=== PATIENT | male | born 1950 | race African-American/Black ===

== ENCOUNTER 2016-08-26 20:56 | Inpatient (IN) | payer OTHER ==
[~2016-08-26] VITALS: Ht 182.9 cm; Wt 103.2 kg
[~2016-08-26 20:56] MED LIST: HYDR25TA4 PO; NIFE20CA PO
[2016-08-26] MEDS ORDERED: ASPirin 81 mg TAB PO ONE (21:15)
[2016-08-26 21:45] LABS: Basophils # (auto) 0 uL; Basophils % (auto) 0.2 % (0.0-2.0); Eosinophils # (auto) 0 uL; Eosinophils % (auto) 0.6 % (0.0-7.0); Hemoglobin 13.3 g/dL (13.5-17.5); Lymphocytes # (auto) 1.4 uL; Lymphocytes % (auto) 18.3 % (10.0-50.0); Mean Corpuscular Hemoglobin 27.1 pg (28.0-32.0); Mean Corpuscular Hgb Conc. 32.5 g/dL (32.0-36.0); Mean Corpuscular Volume 83.3 fL (80.0-100.0); Mean Platelet Volume 8.8 fL (7.4-10.4); Monocytes # (auto) 0.8 uL; Monocytes % (auto) 11.2 % (0.0-12.0); Neutrophils # (auto) 5.3 uL; Neutrophils % (auto) 69.7 % (37.0-80.0); Platelet Count (auto) 243 10^3/uL (140-450); Red Cell Distribution Width 17.4 % (11.6-16.0); White Blood Cell 7.5 10^3/uL (4.4-10.8)
[2016-08-26 22:09] LABS: Albumin 3.1 g/dL (3.4-5.0); BUN/Creatinine Ratio 21.7; Bilirubin, Total 0.6 mg/dL (0.2-1.0); Magnesium 2.4 mg/dL (1.6-2.6); Potassium 4.5 mmol/L (3.5-5.1); Total Protein 6.2 g/dL (6.4-8.2)
[2016-08-26 22:13] LABS: B-Type Natriuretic Peptide 604.79 pg/mL (0-100); Temperature: 23.1 C (20.0-25.0)
[2016-08-27] MEDS ORDERED: LABETALOL HCL 200 MG TAB PO ONE ×2 (01:30→05:30)
[2016-08-27] MEDS ORDERED: ACETAMINOPHEN 325 MG TAB PO PRN (05:30)
[2016-08-27] MEDS ORDERED: ONDANSETRON HCL 4 MG/2 ML VIAL IV PRN (05:30)
[2016-08-27] MEDS ORDERED: FUROSEMIDE 20 MG/2 ML VIAL IV ONE (05:30)
[2016-08-27] MEDS ORDERED: ENOXAPARIN SOD 100 MG/1 ML SYRINGE SC ONE (05:30)
[2016-08-27] MEDS ORDERED: MORPHINE SULF INJ 2 MG/ML SYRINGE 1ML IV PRN ×2 (05:30)
[2016-08-27] MEDS ORDERED: HYDROcodone-ACET 5/325MG TAB PO PRN (05:30)
[2016-08-27] MEDS ORDERED: NITROGLYCERIN 0.4 MG SL TAB SL PRN (05:30)
[2016-08-27] MEDS ORDERED: ALBUTEROL SULF 2.5 MG/0.5ML(0.5%) NEB SOLN NEB PRN (05:30)
[2016-08-27 06:21] VITALS: BP 162/117
[2016-08-27 09:56] VITALS: BP 131/84
[2016-08-27] MEDS ORDERED: FUROSEMIDE 20 MG TAB PO SCH (10:00)
[2016-08-27] MEDS: GEMFIBROZIL 600 MG TAB PO SCH ×2 (10:00→23:08)
[2016-08-27] MEDS ORDERED: ASPirin 81 mg TAB PO SCH (10:00)
[2016-08-27] MEDS ORDERED: HCTZ 25 MG TAB PO SCH (10:00)
[2016-08-27] MEDS ORDERED: ENOXAPARIN SOD 40 MG/0.4 ML SYRINGE SC SCH (10:00)
[2016-08-27] MEDS: FAMOTIDINE 20 MG TAB PO SCH ×2 (11:08→23:09)
[2016-08-27] MEDS: LISINOPRIL 20 MG TAB PO SCH (11:09)
[2016-08-27] MEDS: METOPROLOL TARTRATE 50 MG TAB PO SCH ×2 (11:10→23:09)
[2016-08-27 13:11] VITALS: BP 122/83
[2016-08-27 15:20] LABS: INR 1.12 (0.9-1.15); Prothrombin Time 12.1 sec (9.37-12.3)
[2016-08-27] MEDS ORDERED: SODIUM BICARBONATE 50ML VIAL 150 ML in D5W 5% 1,000 ML IV ONE (16:15)
[2016-08-27 16:59] VITALS: BP 108/80
[2016-08-27] MEDS: ENOXAPARIN SOD 100 MG/1 ML SYRINGE SC SCH (23:09)
[2016-08-27 23:13] VITALS: BP 140/90
[2016-08-28 05:21] LABS: Basophils # (auto) 0 uL; Basophils % (auto) 0.4 % (0.0-2.0); Eosinophils # (auto) 0.1 uL; Eosinophils % (auto) 1.7 % (0.0-7.0); Hematocrit 38.9 % (41.0-53.0); Hemoglobin 12.5 g/dL (13.5-17.5); Lymphocytes # (auto) 1.4 uL; Lymphocytes % (auto) 25.9 % (10.0-50.0); Mean Corpuscular Hemoglobin 27.2 pg (28.0-32.0); Monocytes # (auto) 0.6 uL; Neutrophils # (auto) 3.3 uL; Platelet Count (auto) 242 10^3/uL (140-450); White Blood Cell 5.3 10^3/uL (4.4-10.8)
[2016-08-28 05:49] VITALS: BP 138/98
[2016-08-28 05:53] LABS: Albumin 2.5 g/dL (3.4-5.0); BUN/Creatinine Ratio 23.1; Bilirubin, Total 0.4 mg/dL (0.2-1.0); Calcium 7.8 mg/dL (8.5-10.1); Potassium 3.9 mmol/L (3.5-5.1); Total Protein 5.1 g/dL (6.4-8.2)
[2016-08-28 09:09] VITALS: BP 134/90
[2016-08-28] MEDS: FAMOTIDINE 20 MG TAB PO SCH ×2 (09:52→22:07)
[2016-08-28] MEDS: GEMFIBROZIL 600 MG TAB PO SCH ×2 (09:52→22:07)
[2016-08-28] MEDS: FUROSEMIDE 40 MG/4 ML VIAL IV SCH (09:52)
[2016-08-28] MEDS: POTASSIUM CHL 20 Meq TABLET PO SCH (09:53)
[2016-08-28] MEDS: LISINOPRIL 20 MG TAB PO SCH (09:53)
[2016-08-28] MEDS: ASPirin 81 mg TAB PO SCH (09:54)
[2016-08-28] MEDS: METOPROLOL TARTRATE 50 MG TAB PO SCH ×2 (09:54→22:06)
[2016-08-28] MEDS: ENOXAPARIN SOD 100 MG/1 ML SYRINGE SC SCH ×2 (09:56→22:06)
[2016-08-28] MEDS ORDERED: ASPI81TA27 PO (12:20)
[2016-08-28] MEDS ORDERED: METO-158 PO (12:20)
[2016-08-28] MEDS ORDERED: LISI40TA PO (12:20)
[2016-08-28 13:00] VITALS: BP 137/101
[2016-08-28] MEDS ORDERED: cloNIDine HCL 0.1 MG TAB PO PRN (15:45)
[2016-08-28 16:43] VITALS: BP 145/79
[2016-08-28 22:45] VITALS: BP 129/85
[2016-08-29 05:04] VITALS: BP 140/105
[2016-08-29 08:00] VITALS: BP 140/105
[2016-08-29 08:49] VITALS: BP 147/119
[2016-08-29] MEDS: ENOXAPARIN SOD 100 MG/1 ML SYRINGE SC SCH ×2 (10:00→22:00)
[2016-08-29] MEDS: ASPirin 81 mg TAB PO SCH (10:00)
[2016-08-29] MEDS: FUROSEMIDE 40 MG/4 ML VIAL IV SCH (10:06)
[2016-08-29] MEDS: METOPROLOL TARTRATE 50 MG TAB PO SCH ×2 (10:07→22:27)
[2016-08-29] MEDS: LISINOPRIL 20 MG TAB PO SCH (10:07)
[2016-08-29] MEDS: FAMOTIDINE 20 MG TAB PO SCH ×2 (10:07→22:25)
[2016-08-29] MEDS: GEMFIBROZIL 600 MG TAB PO SCH ×2 (10:08→22:25)
[2016-08-29] MEDS: POTASSIUM CHL 20 Meq TABLET PO SCH (10:08)
[2016-08-29 13:00] VITALS: BP 133/100
[2016-08-29 16:52] VITALS: BP 124/84
[2016-08-29 22:00] VITALS: BP 146/99
[2016-08-30] VITALS (7 sets, daily range): BP systolic 141–152; BP diastolic 84–105
[2016-08-30 06:08] LABS: Albumin 2.7 g/dL (3.4-5.0); Calcium 8.2 mg/dL (8.5-10.1)
[2016-08-30 06:10] LABS: BUN/Creatinine Ratio 15.6
[2016-08-30 06:14] LABS: Bilirubin, Total 0.5 mg/dL (0.2-1.0); Total Protein 5.7 g/dL (6.4-8.2)
[2016-08-30] MEDS: GEMFIBROZIL 600 MG TAB PO SCH (09:34)
[2016-08-30] MEDS: METOPROLOL TARTRATE 50 MG TAB PO SCH (09:34)
[2016-08-30] MEDS: FAMOTIDINE 20 MG TAB PO SCH (09:34)
[2016-08-30] MEDS: FUROSEMIDE 40 MG/4 ML VIAL IV SCH (09:35)
[2016-08-30] MEDS: LISINOPRIL 20 MG TAB PO SCH (09:35)
[2016-08-30] MEDS ORDERED: IOHEXOL 350 MG/ML 100ML IJ ONE ×2 (09:41→09:47)
[2016-08-30] MEDS ORDERED: NITROGLYCERIN 0.4 MG SL TAB SL ONE (09:46)
[2016-08-30] MEDS ORDERED: METOPROLOL TARTRATE 1MG/1ML-5ML VIAL IV ONE (09:46)
[2016-08-30 09:48] LABS: INR 1.03 (0.9-1.15); Partial Thromboplastin Time 25.7 sec (22.64-33.71); Prothrombin Time 11.1 sec (9.37-12.3)
[2016-08-30] MEDS: POTASSIUM CHL 20 Meq TABLET PO SCH (10:00)
[2016-08-30] MEDS: ENOXAPARIN SOD 100 MG/1 ML SYRINGE SC SCH (10:00)
[2016-08-30] MEDS: ASPirin 81 mg TAB PO SCH (10:00)
[2016-08-30] MEDS ORDERED: NIFEdipine ER 30 MG TAB PO ONE (12:15)
[2016-08-30] MEDS ORDERED: MET50T PO (14:41)
[2016-08-30] MEDS ORDERED: APIXABAN 5 MG TAB PO SCH ×2 (14:50→15:00)
[2016-08-30] MEDS ORDERED: WARFARIN SODIUM 5 MG TAB PO ONE (17:00)
[2016-08-30] MEDS ORDERED: METOPROLOL TARTRATE 50 MG TAB PO SCH (22:00)
[2016-08-31] MEDS ORDERED: NIFEdipine ER 30 MG TAB PO SCH (10:00)
== END 2016-08-30 16:34 | disposition home or self-care (01) | DRG 194 ==
LOC: ER 20:56 → TELE 20:57 → TELE-WESTW 08-27 07:26 → TELE-E-ADS 08-27 07:32 → TELE-WESTW 08-27 09:02
PROVIDERS: ADMIT Nurse Practitioner; ATTEND Internal Medicine
DX: I11.0 Hypertensive heart disease with heart failure (principal); E44.0 Moderate protein-calorie malnutrition; D68.69 Other thrombophilia; I51.3 Intracardiac thrombosis, not elsewhere classified; I48.91 Unspecified atrial fibrillation; E78.5 Hyperlipidemia, unspecified; I25.10 Atherosclerotic heart disease of native coronary artery without angina pectoris; R74.8 Abnormal levels of other serum enzymes; Z86.73 Personal history of transient ischemic attack (TIA), and cerebral infarction without residual deficits; I50.33 Acute on chronic diastolic (congestive) heart failure; Z82.49 Family history of ischemic heart disease and other diseases of the circulatory system; Z79.01 Long term (current) use of anticoagulants; Z68.30 Body mass index [BMI] 30.0-30.9, adult
CPT/HCPCS: 36415; 71010; 71020; 75574; 80053; 83735; 83880; 84443; 84484; 85025; 85379; 85610; 85730; 93005; 93306; 96372; 96374

== ENCOUNTER 2018-08-15 09:20 | Inpatient (IN) | payer OTHER ==
[~2018-08-15] VITALS: Ht 185.4 cm; Wt 113.4 kg
[~2018-08-15 09:20] MED LIST changes: +AML5T PO; +FURO40TA4 PO; -HYDR25TA4 PO; +MET50T PO; -NIFE20CA PO; +VALS1TAB57 PO
[2018-08-15 10:06] LABS: Basophils # (auto) 0.1 uL; Basophils % (auto) 0.9 % (0.0-2.0); Eosinophils # (auto) 0.1 uL; Eosinophils % (auto) 0.8 % (0.0-7.0); Hematocrit 44.7 % (41.0-53.0); Hemoglobin 14.5 g/dL (13.5-17.5); Lymphocytes % (auto) 13.5 % (10.0-50.0); Mean Corpuscular Hemoglobin 27.6 pg (28.0-32.0); Mean Corpuscular Hgb Conc. 32.5 g/dL (32.0-36.0); Mean Corpuscular Volume 84.8 fL (80.0-100.0); Monocytes # (auto) 0.6 uL; Monocytes % (auto) 9.1 % (0.0-12.0); Neutrophils # (auto) 5.3 uL; Neutrophils % (auto) 75.7 % (37.0-80.0); Platelet Count (auto) 203 10^3/uL (140-450); Red Blood Cells 5.27 10^6/uL (4.5-5.90); Red Cell Distribution Width 16.6 % (11.8-14.3); White Blood Cell 7.1 10^3/uL (4.4-10.8)
[2018-08-15 10:18] LABS: Albumin 3.1 g/dL (3.4-5.0); BUN/Creatinine Ratio 18.6; Calcium 8.6 mg/dL (8.5-10.1); Magnesium 2.1 mg/dL (1.6-2.6); Potassium 3.5 mmol/L (3.5-5.1)
[2018-08-15 10:23] LABS: Bilirubin, Total 1.4 mg/dL (0.2-1.0); Total Protein 7.2 g/dL (6.4-8.2)
[2018-08-15] MEDS ORDERED: FUROSEMIDE 40 MG/4 ML VIAL IV ONE (11:00)
[2018-08-15] MEDS ORDERED: cloNIDine HCL 0.1 MG TAB PO ONE (17:00)
[2018-08-15] MEDS ORDERED: ALBUTEROL SULF 2.5 MG/0.5ML(0.5%) NEB SOLN NEB SCH (17:00)
[2018-08-15] MEDS ORDERED: NITROGLYCERIN 0.4 MG SL TAB SL PRN (18:30)
[2018-08-15] MEDS ORDERED: MORPHINE SULF INJ 2 MG/ML SYRINGE 1ML IV PRN (18:30)
[2018-08-15] MEDS ORDERED: hydrALAZINE HCL 20 MG/ML VL IV PRN (18:45)
[2018-08-15] MEDS ORDERED: POTASSIUM CHL 20 Meq TABLET PO ONE (20:00)
[2018-08-15] MEDS: FUROSEMIDE 20 MG/2 ML VIAL IV SCH (20:32)
[2018-08-15] MEDS: METOPROLOL TARTRATE 50 MG TAB PO SCH (21:24)
[2018-08-15] MEDS: ENOXAPARIN SOD 120 MG/0.8 ML SYRINGE SC SCH (21:25)
[2018-08-15] MEDS ORDERED: ATORVASTATIN 20 MG TAB PO SCH (22:00)
[2018-08-15] MEDS ORDERED: CARVEDILOL 3.125 MG TAB PO SCH (22:00)
[2018-08-15 22:16] VITALS: BP 169/96
[2018-08-16] MEDS: ALBUTEROL SULF 2.5 MG/0.5ML(0.5%) NEB SOLN NEB SCH ×5 (00:45→14:50)
--- NOTE | 2018-08-16 05:55 | NUR ---
RT NOTE: PT REFUSED NEED FOR TX AT THIS TIME. NO SIGNS OF RESPIRATORY DISTRESS. LUNG SOUNDS CLEAR T/O. ON RA SPO2 99 HR 85 RR 15. PT AWARE THAT I WILL RETURN FOR NEXT SCHEDULED TX. RN BEDSIDE. WILL CONTINUE TO MONITOR.
[2018-08-16] MEDS: FUROSEMIDE 20 MG/2 ML VIAL IV SCH (06:03)
[2018-08-16 06:49] LABS: Basophils # (auto) 0 uL; Basophils % (auto) 0.5 % (0.0-2.0); Eosinophils # (auto) 0.1 uL; Eosinophils % (auto) 1.5 % (0.0-7.0); Hematocrit 41.3 % (41.0-53.0); Hemoglobin 13.4 g/dL (13.5-17.5); Lymphocytes # (auto) 1.1 uL; Lymphocytes % (auto) 17.4 % (10.0-50.0); Mean Corpuscular Hemoglobin 27.5 pg (28.0-32.0); Mean Corpuscular Hgb Conc. 32.6 g/dL (32.0-36.0); Mean Corpuscular Volume 84.5 fL (80.0-100.0); Monocytes # (auto) 0.7 uL; Monocytes % (auto) 11.6 % (0.0-12.0); Neutrophils # (auto) 4.3 uL; Nucleated Red Blood Cells % 0.1 %; Platelet Count (auto) 182 10^3/uL (140-450); Red Blood Cells 4.88 10^6/uL (4.5-5.90); Red Cell Distribution Width 16.6 % (11.8-14.3); White Blood Cell 6.3 10^3/uL (4.4-10.8)
[2018-08-16 07:23] LABS: BUN/Creatinine Ratio 19.4; Calcium 7.9 mg/dL (8.5-10.1); Potassium 3.1 mmol/L (3.5-5.1)
[2018-08-16] MEDS: ENOXAPARIN SOD 120 MG/0.8 ML SYRINGE SC SCH (08:56)
[2018-08-16] MEDS: METOPROLOL TARTRATE 50 MG TAB PO SCH (08:57)
[2018-08-16] MEDS ORDERED: POTASSIUM CHL 20 Meq TABLET PO SCH (10:00)
[2018-08-16] MEDS ORDERED: ASPirin 325 MG TAB PO SCH (10:00)
[2018-08-16] MEDS ORDERED: ENOXAPARIN SOD 40 MG/0.4 ML SYRINGE SC SCH (10:00)
[2018-08-16 10:15] LABS: Cholesterol 203 mg/dL (< 200); Triglycerides 75 mg/dL (< 150)
[2018-08-16 10:17] LABS: HDL Cholesterol 52 mg/dL (40-59); LDL Cholesterol 144 mg/dL (< 100)
[2018-08-16] MEDS ORDERED: POTASSIUM CHL 20 Meq TABLET PO ONE (11:15)
[2018-08-16] MEDS ORDERED: ATOR20TA50 PO (13:25)
[2018-08-16] MEDS ORDERED: HYDR-4296 PO (13:25)
[2018-08-16] MEDS ORDERED: POTA20TA53 PO (13:25)
[2018-08-16] MEDS ORDERED: APIX5TAB OR (13:25)
[2018-08-16] MEDS ORDERED: hydrALAZINE HCL 20 MG/ML VL IV PRN (13:30)
[2018-08-16 14:21] VITALS: BP 145/94
== END 2018-08-16 15:54 | disposition home health service (06) | DRG 194 ==
LOC: ER 09:20 → TELE 18:24
PROVIDERS: ADMIT Hospitalist; ATTEND Hospitalist
DX: I13.0 Hypertensive heart and chronic kidney disease with heart failure and stage 1 through stage 4 chronic kidney disease, or unspecified chronic kidney disease (principal); I24.8 Other forms of acute ischemic heart disease; I48.1 Persistent atrial fibrillation; I48.0 Paroxysmal atrial fibrillation; N18.9 Chronic kidney disease, unspecified; Z79.01 Long term (current) use of anticoagulants; Z86.73 Personal history of transient ischemic attack (TIA), and cerebral infarction without residual deficits; Z79.899 Other long term (current) drug therapy; I50.31 Acute diastolic (congestive) heart failure; I25.10 Atherosclerotic heart disease of native coronary artery without angina pectoris
CPT/HCPCS: 36415; 71046; 80048; 80053; 80061; 83036; 83735; 83880; 84484; 85025; 93005; 93306; 94640; 94761; 96374; G0378

== ENCOUNTER 2018-09-07 17:23 | Emergency (ER) | payer OTHER ==
[~2018-09-07] VITALS: Ht 182.9 cm; Wt 113.4 kg
[~2018-09-07 17:23] MED LIST changes: -AML5T PO; +APIX5TAB OR; +ATOR20TA50 PO; +HYDR-4296 PO; +POTA20TA53 PO
[2018-09-07 18:10] LABS: Basophils # (auto) 0 uL; Basophils % (auto) 0.6 % (0.0-2.0); Eosinophils # (auto) 0.1 uL; Hemoglobin 13.6 g/dL (13.5-17.5); Lymphocytes # (auto) 1.1 uL; Lymphocytes % (auto) 18.3 % (10.0-50.0); Mean Corpuscular Hemoglobin 27.6 pg (28.0-32.0); Mean Corpuscular Hgb Conc. 32.4 g/dL (32.0-36.0); Mean Corpuscular Volume 85.4 fL (80.0-100.0); Monocytes # (auto) 0.6 uL; Monocytes % (auto) 9.4 % (0.0-12.0); Neutrophils # (auto) 4.4 uL; Neutrophils % (auto) 70.7 % (37.0-80.0); Nucleated Red Blood Cells % 0.2 %; Platelet Count (auto) 201 10^3/uL (140-450); Red Blood Cells 4.92 10^6/uL (4.5-5.90); White Blood Cell 6.3 10^3/uL (4.4-10.8)
[2018-09-07 18:33] LABS: Urine Bacteria NONE SEEN /hpf (None Seen); Urine Blood Negative /uL (Negative); Urine Specific Gravity 1.016 (1.001-1.035); Urine WBC 1 /hpf (0 - 3)
[2018-09-07 18:41] LABS: Albumin 3.3 g/dL (3.4-5.0); Calcium 8.4 mg/dL (8.5-10.1); Potassium 4.2 mmol/L (3.5-5.1)
[2018-09-07 18:46] LABS: BUN/Creatinine Ratio 16.7; Total Protein 6.8 g/dL (6.4-8.2)
[2018-09-07] MEDS ORDERED: ASPirin 81 mg TAB PO ONE (21:30)
[2018-09-07] MEDS ORDERED: cloNIDine HCL 0.1 MG TAB PO ONE (21:45)
[2018-09-07] MEDS ORDERED: cloNIDine 0.2 mg/24hr 7DAY PATCH TD ONE (21:45)
[2018-09-07] MEDS ORDERED: FUROSEMIDE 40 MG/4 ML VIAL IV ONE (22:30)
[2018-09-08] MEDS ORDERED: FUROSEMIDE 20 MG/2 ML VIAL IV ONE (00:45)
[2018-09-08] MEDS ORDERED: FUROSEMIDE 40 MG/4 ML VIAL IV ONE (05:15)
[2018-09-08 06:21] VITALS: BP 153/110
[2018-09-08] MEDS ORDERED: METOPROLOL TARTRATE 50 MG TAB PO ONE (06:30)
== END 2018-09-08 07:10 | disposition home or self-care (01) ==
LOC: ER 17:27
DX: R06.09 Other forms of dyspnea (principal); I13.0 Hypertensive heart and chronic kidney disease with heart failure and stage 1 through stage 4 chronic kidney disease, or unspecified chronic kidney disease; N18.3 Chronic kidney disease, stage 3 (moderate); E78.5 Hyperlipidemia, unspecified; I48.0 Paroxysmal atrial fibrillation; R79.89 Other specified abnormal findings of blood chemistry; Z79.899 Other long term (current) drug therapy
CPT/HCPCS: 36415; 71046; 80053; 81001; 83880; 84484; 85025; 93005; 96374; 96376; 99284; J1940

== ENCOUNTER 2021-05-10 08:10 | Inpatient (IN) | payer OTHER ==
[~2021-05-10] VITALS: Ht 182.9 cm; Wt 108.3 kg
[~2021-05-10 08:10] MED LIST changes: +POTA-220 PO; -POTA20TA53 PO
[2021-05-10 09:18] LABS: Basophils # (auto) 0 10 ^3/uL (0-0.2); Basophils % (auto) 0.6 % (0.0-2.0); Eosinophils # (auto) 0.1 10 ^3/uL (0-0.8); Eosinophils % (auto) 1.4 % (0.0-7.0); Hematocrit 43.4 % (41.0-53.0); Hemoglobin 14.4 g/dL (13.5-17.5); Lymphocytes % (auto) 13.8 % (10.0-50.0); Mean Corpuscular Hemoglobin 28.4 pg (28.0-32.0); Mean Corpuscular Hgb Conc. 33.2 g/dL (32.0-36.0); Mean Corpuscular Volume 85.5 fL (80.0-100.0); Monocytes # (auto) 0.6 10 ^3/uL (0-1.3); Monocytes % (auto) 8.2 % (0.0-12.0); Neutrophils # (auto) 5.4 10 ^3/uL (1.6-8.6); Nucleated Red Blood Cells % 0.1 %; Red Blood Cells 5.08 10^6/uL (4.5-5.90); Red Cell Distribution Width 16.2 % (11.8-14.3); White Blood Cell 7.1 10^3/uL (4.4-10.8)
[2021-05-10 09:23] LABS: Urine WBC None Seen /hpf (0 - 3)
[2021-05-10 09:32] LABS: Albumin 3.5 g/dL (3.4-5.0); Calcium 8.8 mg/dL (8.5-10.1); Potassium 4.6 mmol/L (3.5-5.1)
[2021-05-10 09:37] LABS: Urine Bacteria NONE SEEN /hpf (None Seen); Urine Blood Negative /uL (Negative); Urine Specific Gravity 1.005 (1.001-1.035)
[2021-05-10 09:37] LABS: BUN/Creatinine Ratio 20.8; Bilirubin, Total 0.8 mg/dL (0.2-1.0); Total Protein 7.4 g/dL (6.4-8.2)
[2021-05-10] MEDS ORDERED: hydrALAZINE HCL 20 MG/ML VL IV PRN (14:15)
[2021-05-10] MEDS ORDERED: HYDROcodone-ACET 10/325MG TAB PO PRN (14:15)
[2021-05-10] MEDS ORDERED: MORPHINE SULFATE INJECTION 2 MG/ML SYRG IV PRN (14:15)
[2021-05-10] MEDS ORDERED: NITROGLYCERIN 0.4 MG SL TAB SL PRN (14:15)
[2021-05-10 17:51] LABS: INR 1.1 (0.9-1.15)
[2021-05-10] MEDS: FUROSEMIDE 40 MG TAB PO SCH (17:52)
[2021-05-10] MEDS: APIXABAN 5 MG TAB PO SCH (17:52)
[2021-05-10 21:22] VITALS: BP 108/68
[2021-05-10] MEDS ORDERED: MULT-886 OR (21:46)
[2021-05-10] MEDS ORDERED: CARV6.2551 PO (21:46)
[2021-05-10] MEDS ORDERED: APIX5TAB PO (21:46)
[2021-05-10] MEDS ORDERED: ATOR10TA52 PO (21:46)
[2021-05-10] MEDS ORDERED: SPIR25TA8 PO (21:46)
[2021-05-10] MEDS ORDERED: BUME2TAB5 PO (21:46)
[2021-05-10] MEDS ORDERED: HYDR-4296 PO (21:46)
[2021-05-10] MEDS ORDERED: LISI-275 PO (21:46)
[2021-05-10] MEDS ORDERED: POTA-220 PO (21:46)
[2021-05-10] MEDS ORDERED: APIXABAN 5 MG TAB PO SCH (22:00)
[2021-05-10] MEDS ORDERED: ATORVASTATIN 20 MG TAB PO SCH (22:00)
[2021-05-10] MEDS: METOPROLOL TARTRATE 50 MG TAB PO SCH (22:10)
[2021-05-10] MEDS: hydrALAZINE HCL 25 MG TAB PO SCH (22:10)
[2021-05-11 04:09] LABS: Basophils # (auto) 0 10 ^3/uL (0-0.2); Basophils % (auto) 0.7 % (0.0-2.0); Eosinophils # (auto) 0.1 10 ^3/uL (0-0.8); Eosinophils % (auto) 1.8 % (0.0-7.0); Hematocrit 41.5 % (41.0-53.0); Hemoglobin 13.8 g/dL (13.5-17.5); Lymphocytes # (auto) 1.3 10 ^3/uL (0.4-5.4); Lymphocytes % (auto) 20.5 % (10.0-50.0); Mean Corpuscular Hemoglobin 28.7 pg (28.0-32.0); Mean Corpuscular Hgb Conc. 33.1 g/dL (32.0-36.0); Mean Corpuscular Volume 86.5 fL (80.0-100.0); Monocytes # (auto) 0.7 10 ^3/uL (0-1.3); Monocytes % (auto) 11.1 % (0.0-12.0); Neutrophils # (auto) 4.1 10 ^3/uL (1.6-8.6); Neutrophils % (auto) 65.9 % (37.0-80.0); Red Cell Distribution Width 15.7 % (11.8-14.3); White Blood Cell 6.2 10^3/uL (4.4-10.8)
[2021-05-11 04:29] LABS: BUN/Creatinine Ratio 23.8; Calcium 8.3 mg/dL (8.5-10.1); Potassium 4.4 mmol/L (3.5-5.1)
[2021-05-11 05:09] VITALS: BP 119/76
[2021-05-11] MEDS: APIXABAN 5 MG TAB PO SCH (05:13)
[2021-05-11] MEDS: FUROSEMIDE 40 MG TAB PO SCH (05:14)
[2021-05-11] MEDS: hydrALAZINE HCL 25 MG TAB PO SCH (05:14)
[2021-05-11 08:30] VITALS: BP 123/88
[2021-05-11] MEDS: METOPROLOL TARTRATE 50 MG TAB PO SCH (09:33)
[2021-05-11] MEDS ORDERED: VALSARTAN 80 MG TAB PO SCH (10:00)
[2021-05-11 13:20] VITALS: BP 106/74
== END 2021-05-11 14:55 | disposition home health service (06) | DRG 190 ==
LOC: ER 08:10 → TELE 14:01 → TELE-WESTW 20:33
PROVIDERS: ADMIT Internal Medicine; ATTEND Internal Medicine
DX: I21.4 Non-ST elevation (NSTEMI) myocardial infarction (principal); I42.9 Cardiomyopathy, unspecified; I50.9 Heart failure, unspecified; I13.0 Hypertensive heart and chronic kidney disease with heart failure and stage 1 through stage 4 chronic kidney disease, or unspecified chronic kidney disease; E11.22 Type 2 diabetes mellitus with diabetic chronic kidney disease; I48.20 Chronic atrial fibrillation, unspecified; E78.5 Hyperlipidemia, unspecified; M50.10 Cervical disc disorder with radiculopathy, unspecified cervical region; N18.31 Chronic kidney disease, stage 3a; Z96.643 Presence of artificial hip joint, bilateral; Z20.822 Contact with and (suspected) exposure to COVID-19
CPT/HCPCS: 36415; 71045; 72125; 80048; 80053; 81001; 83735; 83880; 84443; 84484; 85025; 85610; 87426; 93005; 93306; G0378

== ENCOUNTER 2023-01-25 21:45 | Emergency (ER) | payer OTHER ==
[~2023-01-25] VITALS: Ht 185.4 cm; Wt 104.0 kg
[~2023-01-25 21:45] MED LIST changes: +APIX5TAB PO; +ATOR10TA52 PO; +BUME2TAB5 PO; +CARV6.2551 PO; +LISI-275 PO; +MULT-886 OR; +SPIR25TA8 PO
[2023-01-25 22:35] LABS: Hemoglobin 13.6 g/dL (13.5-17.5)
[2023-01-25 22:37] LABS: Hematocrit 41.3 % (41.0-53.0); Mean Corpuscular Hgb Conc. 32.9 g/dL (32.0-36.0); Mean Corpuscular Volume 88.1 fL (80.0-100.0); Red Blood Cells 4.69 10^6/uL (4.5-5.90); White Blood Cell 5.5 10^3/uL (4.4-10.8)
[2023-01-25 22:44] LABS: Band Neutrophils % (manual) 0; Basophils % (manual) 0 (0.0-2.0); Blast Cells 0; Metamyelocytes % 0; Myelocytes % 0; Promyelocytes % 0; Reactive Lymphocytes 0
[2023-01-25 22:54] LABS: Albumin 4.1 g/dL (3.2-4.8); Alkaline Phosphatase 91 U/L (46-116); Aspartate Aminotransferase 13 U/L (13-40); Blood Urea Nitrogen 28 mg/dL (9-23); Calcium 9.3 mg/dL (8.7-10.4); Chloride 105 mmol/L (98-107); Glucose 108 mg/dL (74-106); Magnesium 2.2 mg/dL (1.6-2.6); Potassium 4.2 mmol/L (3.5-5.1); Sodium 138 mmol/L (136-145)
[2023-01-25 22:55] LABS: Bilirubin, Total 1.8 mg/dL (0.2-1.0); Total Protein 7.4 g/dL (5.7-8.2)
[2023-01-25 23:02] LABS: Alanine Aminotransferase 9 U/L (7-40)
[2023-01-25 23:21] LABS: Eosinophils % (manual) 1 (0-7); Lymphocytes % (manual) 17 (10.0-50.0); Monocytes % (manual) 7 (0-12); Platelet Estimate Adequate
[2023-01-25 23:22] LABS: Anisocytosis Slight; Ovalocytes FEW
[2023-01-26] MEDS ORDERED: FUROSEMIDE 100 MG/10ML VIAL IV ONE (00:15)
[2023-01-26 02:18] VITALS: BP 107/77; PULSE 67; RESP 19; O2SAT 97
== END 2023-01-26 02:00 | disposition home or self-care (01) ==
LOC: ER 21:45
DX: I13.0 Hypertensive heart and chronic kidney disease with heart failure and stage 1 through stage 4 chronic kidney disease, or unspecified chronic kidney disease (principal); N18.9 Chronic kidney disease, unspecified; I50.9 Heart failure, unspecified; I95.9 Hypotension, unspecified; I48.91 Unspecified atrial fibrillation; E78.5 Hyperlipidemia, unspecified; Z86.73 Personal history of transient ischemic attack (TIA), and cerebral infarction without residual deficits
CPT/HCPCS: 36415; 71045; 80053; 83735; 83880; 84484; 85007; 85027; 93005; 99285; J1940

== ENCOUNTER 2023-03-06 21:21 | Emergency (ER) | payer OTHER ==
[~2023-03-06] VITALS: Ht 185.4 cm; Wt 109.0 kg
[2023-03-06 22:19] LABS: Hematocrit 38.5 % (41.0-53.0); Hemoglobin 12.8 g/dL (13.5-17.5); Mean Corpuscular Hemoglobin 29.2 pg (28.0-32.0); Mean Corpuscular Hgb Conc. 33.4 g/dL (32.0-36.0); Mean Corpuscular Volume 87.5 fL (80.0-100.0); Red Cell Distribution Width 17.7 % (11.8-14.3); White Blood Cell 5.8 10^3/uL (4.4-10.8)
[2023-03-06 22:24] LABS: Basophils % (manual) 0 (0.0-2.0); Blast Cells 0; Eosinophils % (manual) 0 (0-7); Metamyelocytes % 0; Myelocytes % 0; Promyelocytes % 0; Reactive Lymphocytes 0
[2023-03-06 22:41] LABS: Anisocytosis Slight; Band Neutrophils % (manual) 1; Lymphocytes % (manual) 11 (10.0-50.0); Monocytes % (manual) 5 (0-12); Ovalocytes FEW; Platelet Estimate Adequate
[2023-03-06 23:02] VITALS: PULSE 77; RESP 26; TEMP 98.2; O2SAT 95
[2023-03-06 23:03] LABS: Alanine Aminotransferase 11 U/L (7-40); Albumin 3.9 g/dL (3.2-4.8); Alkaline Phosphatase 89 U/L (46-116); Anion Gap 10 (5-15); Aspartate Aminotransferase 25 U/L (13-40); BUN/Creatinine Ratio 15.5 (10.0-20.0); Blood Urea Nitrogen 27 mg/dL (9-23); Carbon Dioxide 24 mmol/L (20-30); Chloride 106 mmol/L (98-107); Glucose 106 mg/dL (74-106); Potassium 4.7 mmol/L (3.5-5.1); Sodium 140 mmol/L (136-145)
[2023-03-06 23:04] LABS: Bilirubin, Total 1.5 mg/dL (0.2-1.0); Total Protein 7.1 g/dL (5.7-8.2)
[2023-03-07] MEDS ORDERED: BUMETANIDE 2.5mg/10ml (0.25 mg/ml) INJ IV ONE (00:30)
[2023-03-07] MEDS ORDERED: FUROSEMIDE 20 MG TAB PO ONE ×2 (00:30→04:30)
[2023-03-07 01:18] LABS: Urine WBC None Seen /hpf (0 - 3)
[2023-03-07 01:45] LABS: Urine Bacteria NONE SEEN /hpf (None Seen); Urine Blood Negative /uL (Negative); Urine Clarity Clear (Clear); Urine Color Yellow (Yellow); Urine Hyaline Cast FEW /lpf (0 - 2); Urine Protein, UAD Negative (Negative); Urine Specific Gravity 1.011 (1.001-1.035)
[2023-03-07 06:00] VITALS: BP 103/74; PULSE 75; RESP 18; O2SAT 96
[2023-03-07 06:13] LABS: Base Excess 0.2 mmol/L (-2.0-2.0)
[2023-03-07 07:24] LABS: COVID19 ANTIGEN SOFIA FIA NEGATIVE (NEGATIVE)
== END 2023-03-07 07:44 | disposition home or self-care (01) ==
LOC: ER 21:21
DX: R06.02 Shortness of breath (principal); I11.0 Hypertensive heart disease with heart failure; I50.9 Heart failure, unspecified; I48.91 Unspecified atrial fibrillation; Z20.822 Contact with and (suspected) exposure to COVID-19
CPT/HCPCS: 36415; 36600; 71045; 80053; 81001; 82805; 83880; 84484; 85007; 85027; 85379; 87426; 93005; 96374

== ENCOUNTER 2023-05-25 15:46 | Observation (INO) | payer OTHER ==
[~2023-05-25] VITALS: Ht 185.4 cm; Wt 109.5 kg
[2023-05-25] MEDS ORDERED: SODIUM CHLORIDE 0.9% 1,000 ML IV ONE (17:15)
[2023-05-25 18:58] LABS: Hematocrit 39.7 % (41.0-53.0); Hemoglobin 12.7 g/dL (13.5-17.5); Mean Corpuscular Hemoglobin 28.1 pg (28.0-32.0); Mean Corpuscular Hgb Conc. 32.1 g/dL (32.0-36.0); Mean Corpuscular Volume 87.7 fL (80.0-100.0); Red Blood Cells 4.53 10^6/uL (4.5-5.90); Red Cell Distribution Width 19.3 % (11.8-14.3)
[2023-05-25 19:01] LABS: Band Neutrophils % (manual) 0; Basophils % (manual) 0 (0.0-2.0); Blast Cells 0; Metamyelocytes % 0; Myelocytes % 0; Promyelocytes % 0; Reactive Lymphocytes 0
[2023-05-25 19:09] LABS: Alanine Aminotransferase 12 U/L (7-40); Albumin 4.2 g/dL (3.2-4.8); Alkaline Phosphatase 114 U/L (46-116); Anion Gap 4 (5-15); Aspartate Aminotransferase 19 U/L (13-40); BUN/Creatinine Ratio 25.2 (10.0-20.0); Bilirubin, Total 1.6 mg/dL (0.2-1.0); Blood Urea Nitrogen 34 mg/dL (9-23); Calcium 9.1 mg/dL (8.7-10.4); Carbon Dioxide 26 mmol/L (20-30); Chloride 107 mmol/L (98-107); Glucose 85 mg/dL (74-106); Magnesium 2.3 mg/dL (1.6-2.6); Sodium 137 mmol/L (136-145); Total Protein 7.3 g/dL (5.7-8.2)
[2023-05-25] MEDS ORDERED: ENOXAPARIN SOD 60 MG/0.6 ML SYRINGE SC ONE (19:45)
[2023-05-25 19:48] LABS: Eosinophils % (manual) 2 (0-7); Lymphocytes % (manual) 29 (10.0-50.0); Monocytes % (manual) 3 (0-12)
[2023-05-25 19:49] LABS: Platelet Estimate Adequate
[2023-05-25] MEDS ORDERED: FUROSEMIDE 20 MG TAB PO ONE (20:00)
[2023-05-25 20:34] VITALS: PULSE 96; RESP 18; O2SAT 96
[2023-05-25 21:10] LABS: INR 1.34 (0.9-1.15); Partial Thromboplastin Time 28.8 SEC (24.5-34.5); Prothrombin Time 13.8 sec (9.3-11.8)
[2023-05-25] MEDS ORDERED: MORPHINE SULFATE INJ 2 MG/ml SYRG IV PRN ×2 (21:30)
[2023-05-25] MEDS ORDERED: NITROGLYCERIN 0.4 MG SL TAB SL PRN (21:30)
[2023-05-25] MEDS ORDERED: ONDANSETRON HCL 4 MG/2 ML VIAL IV PRN (21:30)
[2023-05-26 06:00] VITALS: PULSE 87; RESP 22; O2SAT 95
[2023-05-26] MEDS: FUROSEMIDE 40 MG/4 ML VIAL IV SCH ×3 (06:00→23:25)
[2023-05-26 06:10] LABS: Basophils # (auto) 0.1 10 ^3/uL (0-0.2); Basophils % (auto) 2.1 % (0.0-2.0); Eosinophils # (auto) 0.1 10 ^3/uL (0-0.8); Eosinophils % (auto) 0.9 % (0.0-7.0); Hematocrit 40.6 % (41.0-53.0); Hemoglobin 12.9 g/dL (13.5-17.5); Lymphocytes # (auto) 0.5 10 ^3/uL (0.4-5.4); Lymphocytes % (auto) 7.6 % (10.0-50.0); Mean Corpuscular Hemoglobin 28.1 pg (28.0-32.0); Mean Corpuscular Hgb Conc. 31.8 g/dL (32.0-36.0); Mean Corpuscular Volume 88.4 fL (80.0-100.0); Monocytes # (auto) 0.8 10 ^3/uL (0-1.3); Monocytes % (auto) 12.9 % (0.0-12.0); Neutrophils # (auto) 4.8 10 ^3/uL (1.6-8.6); Neutrophils % (auto) 76.5 % (37.0-80.0); Nucleated Red Blood Cells % 0.2 %; Red Blood Cells 4.59 10^6/uL (4.5-5.90); Red Cell Distribution Width 19.5 % (11.8-14.3); White Blood Cell 6.3 10^3/uL (4.4-10.8)
[2023-05-26] MEDS: ENOXAPARIN SOD 100 MG/1 ML SYRINGE SC SCH ×2 (06:42→19:08)
[2023-05-26 06:43] LABS: Alkaline Phosphatase 109 U/L (46-116); Anion Gap 8 (5-15); Aspartate Aminotransferase 18 U/L (13-40); BUN/Creatinine Ratio 19.1 (10.0-20.0); Bilirubin, Total 1.8 mg/dL (0.2-1.0); Blood Urea Nitrogen 27 mg/dL (9-23); Carbon Dioxide 24 mmol/L (20-30); Chloride 106 mmol/L (98-107); Glucose 91 mg/dL (74-106); Potassium 4.5 mmol/L (3.5-5.1); Sodium 138 mmol/L (136-145); Total Protein 7.3 g/dL (5.7-8.2)
[2023-05-26 06:45] LABS: Alanine Aminotransferase 9 U/L (7-40)
[2023-05-26 08:10] VITALS: PULSE 92; RESP 18; O2SAT 90
[2023-05-26 09:05] LABS: Urine WBC None Seen /hpf (0 - 3)
[2023-05-26 09:42] LABS: Urine Bacteria NONE SEEN /hpf (None Seen); Urine Blood Negative /uL (Negative); Urine Clarity Clear (Clear); Urine Color Yellow (Yellow); Urine Hyaline Cast FEW /lpf (0 - 2); Urine Protein, UAD Negative (Negative); Urine Specific Gravity 1.012 (1.001-1.035); Urine Urobilinogen Normal (Negative)
[2023-05-26 09:54] LABS: Base Excess -2.7 mmol/L (-2.0-2.0)
[2023-05-26 19:30] VITALS: PULSE 88; RESP 15; O2SAT 90
[2023-05-26 23:54] VITALS: BP 117/85; PULSE 95; RESP 18; TEMP 97.9; O2SAT 97
[2023-05-27 05:00] VITALS: BP 107/77; PULSE 91; RESP 20; TEMP 97.7; O2SAT 96
[2023-05-27 05:49] LABS: Albumin 3.9 g/dL (3.2-4.8); Alkaline Phosphatase 105 U/L (46-116); Anion Gap 9 (5-15); Aspartate Aminotransferase 19 U/L (13-40); BUN/Creatinine Ratio 16.9 (10.0-20.0); Blood Urea Nitrogen 23 mg/dL (9-23); Calcium 8.9 mg/dL (8.7-10.4); Carbon Dioxide 23 mmol/L (20-30); Chloride 106 mmol/L (98-107); Glucose 81 mg/dL (74-106); Magnesium 2.3 mg/dL (1.6-2.6); Potassium 4.1 mmol/L (3.5-5.1); Sodium 138 mmol/L (136-145)
[2023-05-27 05:50] LABS: Bilirubin, Total 1.5 mg/dL (0.2-1.0); Total Protein 7.1 g/dL (5.7-8.2)
[2023-05-27 06:01] LABS: Hematocrit 37.6 % (41.0-53.0); Hemoglobin 12.1 g/dL (13.5-17.5); Mean Corpuscular Hemoglobin 28.3 pg (28.0-32.0); Mean Corpuscular Hgb Conc. 32.1 g/dL (32.0-36.0); Mean Corpuscular Volume 88.1 fL (80.0-100.0); Red Blood Cells 4.27 10^6/uL (4.5-5.90); Red Cell Distribution Width 19.2 % (11.8-14.3); White Blood Cell 6.1 10^3/uL (4.4-10.8)
[2023-05-27 06:09] LABS: Basophils % (manual) 0 (0.0-2.0); Blast Cells 0; Eosinophils % (manual) 0 (0-7); Promyelocytes % 0; Reactive Lymphocytes 0
[2023-05-27 06:11] LABS: Alanine Aminotransferase 9 U/L (7-40)
[2023-05-27] MEDS: FUROSEMIDE 40 MG/4 ML VIAL IV SCH ×2 (06:53→13:57)
[2023-05-27 08:00] VITALS: PULSE 114
[2023-05-27 08:17] LABS: Band Neutrophils % (manual) 7; Lymphocytes % (manual) 12 (10.0-50.0); Metamyelocytes % 2; Monocytes % (manual) 4 (0-12); Myelocytes % 1; Platelet Estimate Adequate
[2023-05-27 08:18] LABS: Ovalocytes FEW; Stomatocytes Few
[2023-05-27 09:00] VITALS: BP 111/81; PULSE 69; RESP 20; TEMP 97.5; O2SAT 92
[2023-05-27] MEDS ORDERED: VALSARTAN 80 MG TAB PO SCH (10:00)
[2023-05-27] MEDS ORDERED: ENOXAPARIN SOD 100 MG/1 ML SYRINGE SC SCH (10:00)
[2023-05-27] MEDS ORDERED: CARV6.2551 PO (12:12)
[2023-05-27] MEDS ORDERED: ATOR20TA50 PO (12:12)
[2023-05-27 13:00] VITALS: BP 103/80; PULSE 76; RESP 15; TEMP 97.5; O2SAT 99
[2023-05-27] MEDS ORDERED: BUM1T PO (13:17)
[2023-05-27] MEDS ORDERED: VALS1TAB58 PO (13:17)
[2023-05-27] MEDS ORDERED: SPIR25TA8 PO (13:18)
[2023-05-27 17:00] VITALS: BP 116/84; PULSE 63; RESP 16; TEMP 98.3; O2SAT 97
== END 2023-05-27 17:27 | disposition home or self-care (01) ==
LOC: ER 15:46 → EDBD 15:46 → EDUNIT# 15:46 → TELE 21:34 → EDUNIT# 21:34 → TELE-WESTW 05-26 22:30
PROVIDERS: ADMIT Internal Medicine; ATTEND Student in an Organized Health Care Education/Training Program
DX: I13.0 Hypertensive heart and chronic kidney disease with heart failure and stage 1 through stage 4 chronic kidney disease, or unspecified chronic kidney disease (principal); I50.84 End stage heart failure; N18.31 Chronic kidney disease, stage 3a; J96.00 Acute respiratory failure, unspecified whether with hypoxia or hypercapnia; I48.19 Other persistent atrial fibrillation; D68.59 Other primary thrombophilia; R79.89 Other specified abnormal findings of blood chemistry; R60.0 Localized edema; Z79.01 Long term (current) use of anticoagulants; Z79.899 Other long term (current) drug therapy; Z96.643 Presence of artificial hip joint, bilateral
CPT/HCPCS: 36415; 36600; 70450; 71046; 78582; 80053; 81001; 82805; 83735; 83880; 84443; 84484; 85007; 85025; 85027; 85379; 85610; 85730; 93005; 93306; 93970; 96372; 96374; 96376; 99285; A9540; A9558; G0378; J1650; J1940